=== PATIENT | female | born 1945 | race Caucasian/White ===

== ENCOUNTER 2018-04-23 11:08 | Outpatient (CLI) | payer MEDICARE, BC ==
[2018-04-23 12:00] LABS: ALBUMIN 3.9 g/dL (3.2-5.5); CALCIUM 8.8 mg/dL (8.5-10.3); CREATININE 2.9 mg/dL (0.4-1.0); PHOSPHORUS 4.4 mg/dL (2.5-4.6)
== END 2018-04-23 11:09 | disposition home or self-care (01) ==
LOC: LAB 11:08
PROVIDERS: ATTEND Internal Medicine Nephrology
DX: N18.4 Chronic kidney disease, stage 4 (severe) (principal)
CPT/HCPCS: 36415; 80069

== ENCOUNTER 2018-05-23 10:48 | Outpatient (CLI) | payer MEDICARE, BC ==
[2018-05-23 11:38] LABS: ALBUMIN 4.1 g/dL (3.2-5.5); CALCIUM 8.8 mg/dL (8.5-10.3); CREATININE 2.8 mg/dL (0.4-1.0); PHOSPHORUS 4.4 mg/dL (2.5-4.6)
== END 2018-05-23 10:49 | disposition home or self-care (01) ==
LOC: LAB 10:48
PROVIDERS: ATTEND Internal Medicine Nephrology
DX: N18.4 Chronic kidney disease, stage 4 (severe) (principal)
CPT/HCPCS: 36415; 80069

== ENCOUNTER 2018-06-22 10:36 | Outpatient (CLI) | payer MEDICARE, BC ==
[2018-06-22 11:14] LABS: ALBUMIN 4.3 g/dL (3.2-5.5); CALCIUM 8.8 mg/dL (8.5-10.3); PHOSPHORUS 4.8 mg/dL (2.5-4.6)
== END 2018-06-22 10:37 | disposition home or self-care (01) ==
LOC: LAB 10:36
PROVIDERS: ATTEND Internal Medicine Nephrology
DX: N18.4 Chronic kidney disease, stage 4 (severe) (principal)
CPT/HCPCS: 36415; 80069; 82728

== ENCOUNTER 2018-07-24 14:23 | Outpatient (CLI) | payer MEDICARE, BC ==
[2018-07-24 15:18] LABS: ALBUMIN 4.3 g/dL (3.2-5.5); CALCIUM 8.6 mg/dL (8.5-10.3); PHOSPHORUS 5.2 mg/dL (2.5-4.6)
== END 2018-07-24 14:24 | disposition home or self-care (01) ==
LOC: LAB 14:23
PROVIDERS: ATTEND Internal Medicine Nephrology
DX: N18.4 Chronic kidney disease, stage 4 (severe) (principal)
CPT/HCPCS: 36415; 80069

== ENCOUNTER 2018-08-22 11:38 | Outpatient (CLI) | payer MEDICARE, BC ==
[2018-08-22 12:16] LABS: ALBUMIN 4.1 g/dL (3.2-5.5); CALCIUM 8.4 mg/dL (8.5-10.3); CREATININE 3.1 mg/dL (0.4-1.0); PHOSPHORUS 5.1 mg/dL (2.5-4.6)
== END 2018-08-22 11:39 | disposition home or self-care (01) ==
LOC: LAB 11:38
PROVIDERS: ATTEND Internal Medicine Nephrology
DX: N18.4 Chronic kidney disease, stage 4 (severe) (principal)
CPT/HCPCS: 36415; 80069

== ENCOUNTER 2018-09-24 12:46 | Outpatient (CLI) | payer MEDICARE, BC ==
[2018-09-24 14:02] LABS: CALCIUM 8.4 mg/dL (8.5-10.3); CREATININE 3.2 mg/dL (0.4-1.0); PHOSPHORUS 4.6 mg/dL (2.5-4.6)
== END 2018-09-24 12:47 | disposition home or self-care (01) ==
LOC: LAB 12:46
PROVIDERS: ATTEND Internal Medicine Nephrology
DX: N18.4 Chronic kidney disease, stage 4 (severe) (principal)
CPT/HCPCS: 36415; 80069

== ENCOUNTER 2018-10-05 09:05 | Outpatient (CLI) | payer MEDICARE, BC ==
[2018-10-05 09:31] LABS: ALBUMIN 4.3 g/dL (3.2-5.5); CREATININE 2.9 mg/dL (0.4-1.0); PHOSPHORUS 4.7 mg/dL (2.5-4.6)
== END 2018-10-05 09:06 | disposition home or self-care (01) ==
LOC: LAB 09:05
PROVIDERS: ATTEND Internal Medicine Nephrology
DX: N18.4 Chronic kidney disease, stage 4 (severe) (principal)
CPT/HCPCS: 36415; 80069

== ENCOUNTER 2018-10-24 13:25 | Outpatient (CLI) | payer MEDICARE, BC ==
[2018-10-24 14:19] LABS: ALBUMIN 4.2 g/dL (3.2-5.5); CALCIUM 8.9 mg/dL (8.5-10.3); CREATININE 3.1 mg/dL (0.4-1.0); PHOSPHORUS 5.6 mg/dL (2.5-4.6)
== END 2018-10-24 13:26 | disposition home or self-care (01) ==
LOC: LAB 13:25
PROVIDERS: ATTEND Internal Medicine Nephrology
DX: N18.4 Chronic kidney disease, stage 4 (severe) (principal)
CPT/HCPCS: 36415; 80069

== ENCOUNTER 2019-06-25 13:53 | Outpatient (CLI) | payer MEDICARE, BC ==
[2019-06-25 17:47] LABS: HGB - HEMOGLOBIN 12.5 g/dL (12.0-16.0)
[2019-06-25 18:14] LABS: CALCIUM 8.5 mg/dL (8.5-10.3); CREATININE 3.6 mg/dL (0.4-1.0); MAGNESIUM 2.2 mg/dL (1.7-2.8); PHOSPHORUS 4.7 mg/dL (2.5-4.6)
[2019-06-25 18:16] LABS: CREATININE,URINE 146.8 mg/dL; PROTEIN/CREATININE RATIO,URINE 0.4 (<=0.2)
== END 2019-06-25 13:54 | disposition home or self-care (01) ==
LOC: LAB.S 13:53
PROVIDERS: ATTEND Internal Medicine Nephrology
DX: I12.0 Hypertensive chronic kidney disease with stage 5 chronic kidney disease or end stage renal disease (principal); N18.5 Chronic kidney disease, stage 5; D63.1 Anemia in chronic kidney disease
CPT/HCPCS: 36415; 80069; 82570; 83735; 83970; 84156; 85014; 85018

== ENCOUNTER 2019-12-19 15:08 | Outpatient (CLI) | payer MEDICARE, BC ==
[2019-12-19 15:29] LABS: CALCIUM 8.3 mg/dL (8.5-10.3); CREATININE 5.2 mg/dL (0.4-1.0)
[2019-12-19 15:32] LABS: HGB - HEMOGLOBIN 12.1 g/dL (12.0-16.0); MEAN CORPUSCULAR HEMOGLOBIN 27.6 pg (27.0-31.0); MEAN CORPUSCULAR HGB CONC 31.4 g/dL (32.0-36.0); MEAN CORPUSCULAR VOLUME 87.7 fL (81.0-99.0); MEAN PLATELET VOLUME 10.6 fL (7.9-10.8); RED BLOOD COUNT 4.39 10^6/uL (4.20-5.40); RED CELL DISTRIBUTION WIDTH 14.6 % (12.0-15.0); WHITE BLOOD COUNT 9.2 x10^3/uL (4.8-10.8)
== END 2019-12-19 15:09 | disposition home or self-care (01) ==
LOC: LAB 15:08
PROVIDERS: ATTEND Family Medicine
DX: R19.7 Diarrhea, unspecified (principal); N17.9 Acute kidney failure, unspecified; N18.4 Chronic kidney disease, stage 4 (severe)
CPT/HCPCS: 36415; 80048; 85027

== ENCOUNTER 2020-03-24 09:18 | Outpatient (CLI) | payer MEDICARE, BC ==
[2020-03-24 10:02] LABS: HGB - HEMOGLOBIN 11.9 g/dL (12.0-16.0)
[2020-03-24 10:16] LABS: ALBUMIN 4.3 g/dL (3.2-5.5); CALCIUM 8.9 mg/dL (8.5-10.3); CREATININE 3.6 mg/dL (0.4-1.0); MAGNESIUM 2.4 mg/dL (1.7-2.8); PHOSPHORUS 5.9 mg/dL (2.5-4.6)
== END 2020-03-24 09:19 | disposition home or self-care (01) ==
LOC: LAB 09:18
PROVIDERS: ATTEND Internal Medicine Nephrology
DX: I12.0 Hypertensive chronic kidney disease with stage 5 chronic kidney disease or end stage renal disease (principal); N18.5 Chronic kidney disease, stage 5; D63.1 Anemia in chronic kidney disease
CPT/HCPCS: 36415; 80069; 81599; 82570; 83735; 84156; 85014; 85018

== ENCOUNTER 2020-03-28 13:04 | Emergency (ER) | payer MEDICARE, BC ==
[2020-03-28] MEDS ORDERED: TETANUS/DIPHTHERIA/PERTUSSIS 0.5 ML SYRINGE IM ONE (13:11)
[2020-03-28] MEDS ORDERED: BUFFERED LIDOCAINE 10 ML SYRINGE SUBQ STA (13:15)
[2020-03-28] MEDS ORDERED: LIDOCAINE-EPINEPH-TETRACAINE 3 ML SYRINGE TOP STA (13:15)
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
[2020-03-28 14:09] VITALS: BP 140/78
== END 2020-03-28 14:08 | disposition home or self-care (01) ==
LOC: ED 13:04
DX: S91.311A Laceration without foreign body, right foot, initial encounter (principal); W26.8XXA Contact with other sharp object(s), not elsewhere classified, initial encounter; Z23 Encounter for immunization; N28.9 Disorder of kidney and ureter, unspecified
CPT/HCPCS: 12002; 90471; 99281; 99283

== ENCOUNTER 2020-04-27 11:13 | Outpatient (CLI) | payer MEDICARE, BC ==
[2020-04-27 11:31] LABS: HGB - HEMOGLOBIN 11.6 g/dL (12.0-16.0)
[2020-04-27 11:41] LABS: CREATININE,URINE 137.8 mg/dL
[2020-04-27 11:46] LABS: ALBUMIN 4.2 g/dL (3.2-5.5); CALCIUM 9.5 mg/dL (8.5-10.3); CREATININE 3.8 mg/dL (0.4-1.0); MAGNESIUM 2.3 mg/dL (1.7-2.8); PHOSPHORUS 4.8 mg/dL (2.5-4.6)
== END 2020-04-27 11:14 | disposition home or self-care (01) ==
LOC: LAB 11:13
PROVIDERS: ATTEND Internal Medicine Nephrology
DX: I12.0 Hypertensive chronic kidney disease with stage 5 chronic kidney disease or end stage renal disease (principal); D63.1 Anemia in chronic kidney disease; N18.5 Chronic kidney disease, stage 5
CPT/HCPCS: 36415; 80069; 82570; 83735; 83970; 84156; 85014; 85018

== ENCOUNTER 2020-05-22 10:54 | Outpatient (CLI) | payer MEDICARE, BC ==
[2020-05-22 11:25] LABS: HGB - HEMOGLOBIN 13.3 g/dL (12.0-16.0)
[2020-05-22 11:39] LABS: ALBUMIN 4.3 g/dL (3.2-5.5); CALCIUM 9.6 mg/dL (8.5-10.3); CREATININE 3.8 mg/dL (0.4-1.0); MAGNESIUM 2.6 mg/dL (1.7-2.8); PHOSPHORUS 5.2 mg/dL (2.5-4.6)
[2020-05-22 12:50] LABS: CREATININE,URINE 160.6 mg/dL; PROTEIN/CREATININE RATIO,URINE 2.7 (<=0.2)
== END 2020-05-22 10:55 | disposition home or self-care (01) ==
LOC: LAB 10:54
PROVIDERS: ATTEND Internal Medicine Nephrology
DX: I12.0 Hypertensive chronic kidney disease with stage 5 chronic kidney disease or end stage renal disease (principal); N18.5 Chronic kidney disease, stage 5; D63.1 Anemia in chronic kidney disease; M1A.9XX0 Chronic gout, unspecified, without tophus (tophi); Z79.899 Other long term (current) drug therapy
CPT/HCPCS: 36415; 80069; 82570; 83735; 83970; 84156; 84550; 85014; 85018

== ENCOUNTER 2020-07-02 13:15 | Outpatient (CLI) | payer MEDICARE, BC | END 2020-07-02 13:16 | disposition home or self-care (01) | LOC: LAB 13:15 | PROVIDERS: ATTEND Internal Medicine Nephrology | DX: Z53.9 Procedure and treatment not carried out, unspecified reason (principal) | CPT/HCPCS: 36415; 80069; 83735; 85014; 85018 ==

== ENCOUNTER 2020-07-06 13:05 | Outpatient (CLI) | payer MEDICARE, BC ==
[2020-07-06 15:38] LABS: HGB - HEMOGLOBIN 12.9 g/dL (12.0-16.0)
[2020-07-06 15:54] LABS: ALBUMIN 3.8 g/dL (3.2-5.5); CALCIUM 9.2 mg/dL (8.5-10.3); CREATININE 3.6 mg/dL (0.4-1.0); MAGNESIUM 2.2 mg/dL (1.7-2.8); PHOSPHORUS 4.2 mg/dL (2.5-4.6)
== END 2020-07-06 13:06 | disposition home or self-care (01) ==
LOC: LAB.S 13:05
PROVIDERS: ATTEND Nurse Practitioner
DX: N18.6 End stage renal disease (principal)
CPT/HCPCS: 36415; 80069; 83735; 85014; 85018

== ENCOUNTER 2020-07-10 15:15 | Outpatient (CLI) | payer MEDICARE, BC ==
[2020-07-10 19:54] LABS: ALBUMIN 3.9 g/dL (3.2-5.5); CALCIUM 9.1 mg/dL (8.5-10.3); PHOSPHORUS 5.1 mg/dL (2.5-4.6)
== END 2020-07-10 15:16 | disposition home or self-care (01) ==
LOC: LAB.S 15:15
PROVIDERS: ATTEND Internal Medicine Cardiovascular Disease
DX: R06.00 Dyspnea, unspecified (principal); N18.5 Chronic kidney disease, stage 5
CPT/HCPCS: 36415; 80069

== ENCOUNTER 2020-07-27 16:06 | Outpatient (CLI) | payer MEDICARE, BC ==
[2020-07-27 20:00] LABS: HGB - HEMOGLOBIN 13.5 g/dL (12.0-16.0)
[2020-07-27 20:10] LABS: ALBUMIN 4.2 g/dL (3.2-5.5); CALCIUM 9.8 mg/dL (8.5-10.3); CREATININE 4.1 mg/dL (0.4-1.0); MAGNESIUM 2.5 mg/dL (1.7-2.8); PHOSPHORUS 5.2 mg/dL (2.5-4.6)
== END 2020-07-27 16:07 | disposition home or self-care (01) ==
LOC: LAB.S 16:06
PROVIDERS: ATTEND Internal Medicine Nephrology
DX: I12.9 Hypertensive chronic kidney disease with stage 1 through stage 4 chronic kidney disease, or unspecified chronic kidney disease (principal); N18.4 Chronic kidney disease, stage 4 (severe); Z76.82 Awaiting organ transplant status; N25.81 Secondary hyperparathyroidism of renal origin
CPT/HCPCS: 36415; 80069; 83735; 83970; 85014; 85018

== ENCOUNTER 2020-08-10 12:13 | Outpatient (CLI) | payer MEDICARE, BC ==
[2020-08-10 16:56] LABS: HGB - HEMOGLOBIN 13.7 g/dL (12.0-16.0)
[2020-08-10 16:58] LABS: ALBUMIN 4.2 g/dL (3.2-5.5); CREATININE 3.9 mg/dL (0.4-1.0)
== END 2020-08-10 12:14 | disposition home or self-care (01) ==
LOC: LAB.S 12:13
PROVIDERS: ATTEND Internal Medicine Nephrology
DX: N18.4 Chronic kidney disease, stage 4 (severe) (principal); D63.1 Anemia in chronic kidney disease
CPT/HCPCS: 36415; 80069; 85014; 85018

== ENCOUNTER 2020-09-03 09:13 | Outpatient (CLI) | payer MEDICARE, BC | END 2020-09-03 09:14 | disposition home or self-care (01) | LOC: LAB.S 09:13 | PROVIDERS: ATTEND Pharmacist | DX: I48.92 Unspecified atrial flutter (principal) | CPT/HCPCS: 85610 ==

== ENCOUNTER 2020-09-07 14:28 | Outpatient (CLI) | payer MEDICARE, BC | END 2020-09-07 14:29 | disposition home or self-care (01) | LOC: LAB.S 14:28 | PROVIDERS: ATTEND Pharmacist | DX: I48.92 Unspecified atrial flutter (principal) | CPT/HCPCS: 85610 ==

== ENCOUNTER 2020-09-14 10:04 | Outpatient (CLI) | payer MEDICARE, BC | END 2020-09-14 10:05 | disposition home or self-care (01) | LOC: LAB.S 10:04 | PROVIDERS: ATTEND Pharmacist | DX: Z00.00 Encounter for general adult medical examination without abnormal findings (principal); I48.92 Unspecified atrial flutter | CPT/HCPCS: 85610 ==

== ENCOUNTER 2020-09-21 08:49 | Outpatient (CLI) | payer MEDICARE, BC ==
[2020-09-21 16:11] LABS: CREATININE,URINE 62.1 mg/dL; PROTEIN/CREATININE RATIO,URINE 1.5 (<=0.2)
[2020-09-21 16:33] LABS: ALBUMIN 4.1 g/dL (3.2-5.5); CARBON DIOXIDE - CO2 23 mmol/L (21-32); CHLORIDE 97 mmol/L (101-111); CHOL/HDL RATIO 3.2 (<4.4); CHOLESTEROL 187 mg/dL; CREATININE 4.8 mg/dL (0.4-1.0); GLUCOSE 113 mg/dL (70-100); HDL CHOLESTEROL 58 mg/dL; LDL CHOLESTEROL,CALCULATED 110 mg/dL; LDL/HDL RATIO 1.9 (<4.4); MAGNESIUM 2.8 mg/dL (1.7-2.8); PHOSPHORUS 8.6 mg/dL (2.5-4.6); SODIUM 135 mmol/L (135-145); VLDL CHOLESTEROL 19 mg/dL
[2020-09-21 16:48] LABS: BUN - BLOOD UREA NITROGEN 112 mg/dL (6-20)
[2020-09-21 19:57] LABS: HEMOGLOBIN A1c% 6.4 % (4.27-6.07)
== END 2020-09-21 08:50 | disposition home or self-care (01) ==
LOC: LAB.S 08:49
PROVIDERS: ATTEND Internal Medicine Nephrology
DX: Z00.00 Encounter for general adult medical examination without abnormal findings (principal); N18.6 End stage renal disease; D63.1 Anemia in chronic kidney disease; I10 Essential (primary) hypertension; N25.81 Secondary hyperparathyroidism of renal origin; I48.92 Unspecified atrial flutter
CPT/HCPCS: 36415; 80061; 80069; 82570; 83036; 83721; 83735; 83970; 84156; 85610

== ENCOUNTER 2020-09-22 18:01 | Outpatient (CLI) | payer MEDICARE, BC ==
[2020-09-22 20:16] LABS: HGB - HEMOGLOBIN 12.8 g/dL (12.0-16.0); MEAN CORPUSCULAR HEMOGLOBIN 26.4 pg (27.0-31.0); MEAN CORPUSCULAR HGB CONC 31.3 g/dL (32.0-36.0); MEAN CORPUSCULAR VOLUME 84.5 fL (81.0-99.0); MEAN PLATELET VOLUME 10.6 fL (7.9-10.8); RED BLOOD COUNT 4.84 10^6/uL (4.20-5.40); RED CELL DISTRIBUTION WIDTH 15.9 % (12.0-15.0); WHITE BLOOD COUNT 8.9 x10^3/uL (4.8-10.8)
[2020-09-22 20:32] LABS: CALCIUM 9.4 mg/dL (8.5-10.3)
[2020-09-22 20:33] LABS: CREATININE 5.1 mg/dL (0.4-1.0); MAGNESIUM 2.6 mg/dL (1.7-2.8); PHOSPHORUS 8.7 mg/dL (2.5-4.6)
--- OUTSIDE RECORDS SUMMARY | 2020-09-23 04:54 | EXTERNAL MEDICAL SUMMARY RPT | Continuity of Care Document ---
:1945 Demographics Phone Unavailable Preferred Language Unknown Marital Status Unknown Worship Affiliation Unknown Race Unknown Ethnic Group Unknown Author Organization [facility] Address [address] [phone] Phone Care Team Providers Name Role Phone Matias Unavailable Unavailable Reddy Unavailable Unavailable MATIAS Unavailable Unavailable Appiah Unavailable Unavailable Problems date description facility 2020-07-02 13:00 ESSENTIAL (PRIMARY) HYPERTENSION [facility] 2020-07-02 13:00 CHRONIC KIDNEY DISEASE, STAGE 5 [facility] 2020-07-02 13:00 SECONDARY HYPERPARATHYROIDISM OF [facility]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 2020-07-06 13:05 ESSENTIAL (PRIMARY) HYPERTENSION [facility] 2020-07-06 13:05 END STAGE RENAL DISEASE 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 2020-09-14 10:04 ENCNTR FOR GENERAL ADULT MEDICAL [facility] EXAM W/O ABNORMAL FINDINGS 2020-09-21 08:49 ANEMIA IN CHRONIC KIDNEY DISEASE [facility] 2020-09-21 08:49 ESSENTIAL (PRIMARY) HYPERTENSION [facility] 2020-09-21 08:49 UNSPECIFIED ATRIAL FLUTTER [facility] 2020-09-21 08:49 CHRONIC KIDNEY DISEASE, STAGE 4 [facility] ([facility]) 2020-09-21 08:49 END STAGE RENAL DISEASE [facility] 2020-09-21 08:49 SECONDARY HYPERPARATHYROIDISM OF [facility] RENAL ORIGIN 2020-09-21 08:49 ENCNTR FOR GENERAL ADULT MEDICAL [facility] EXAM W/O ABNORMAL FINDINGS 2020-09-22 18:01 ESSENTIAL (PRIMARY) HYPERTENSION [facility] 2020-09-22 18:01 CHRONIC KIDNEY DISEASE, STAGE 4 [facility] ([facility]) 2020-09-22 18:01 CHRONIC KIDNEY DISEASE, STAGE 5 [facility] 2020-09-22 18:01 SECONDARY HYPERPARATHYROIDISM OF [facility] RENAL ORIGIN 2020-09-22 18:01 AWAITING ORGAN TRANSPLANT STATUS [facility] Allergies date description facility AZITHROMYCIN [facility] BEE VENOM [facility] DOXYCYCLINE [facility] HYDROCODONE [facility] MORPHINE [facility] PENICILLINS [facility] UNCODED NONSCREENABLE ALLERGEN [facility] NO ALLERGY INFORMATION AVAILABLE [facility] PENICILLINS [facility] NO KNOWN ALLERGIES [facility] Penicillins [facility] TRAZ[facility] QUETIAPINE [facility] [place] HYDROCODONE-ACETAMINOPHEN [facility] MORPHINE [facility] [place] NAPHAZOLINE-POLYETHYL GLYCOL [facility] NO KNOWN ALLERGIES [facility] PENICILLINS [facility] Results Social History date description facility [id number]
[2020-09-25 13:22] LABS: HEPATITIS B SURFACE ANTIGEN NON-REACTIVE (NON-REACTIVE); HEPATITIS C ANTIBODY NON-REACTIVE (NON-REACTIVE)
== END 2020-09-22 18:02 | disposition home or self-care (01) ==
LOC: LAB.S 18:01
PROVIDERS: ATTEND Internal Medicine Nephrology
DX: I12.0 Hypertensive chronic kidney disease with stage 5 chronic kidney disease or end stage renal disease (principal); N18.5 Chronic kidney disease, stage 5; N25.81 Secondary hyperparathyroidism of renal origin; Z76.82 Awaiting organ transplant status
CPT/HCPCS: 36415; 80069; 81599; 83735; 85027; 86317; 86704; 86803; 87340; 87535

== ENCOUNTER 2020-10-10 09:48 | Outpatient (CLI) | payer MEDICARE, BC | END 2020-10-10 09:49 | disposition critical access hospital (66) | LOC: EMS 09:48 | PROVIDERS: ATTEND Surgery | DX: I95.9 Hypotension, unspecified (principal); R53.83 Other fatigue | CPT/HCPCS: A0425; A0429 ==

== ENCOUNTER 2020-10-10 10:10 | Emergency (ER) | payer MEDICARE, BC ==
[2020-10-10] MEDS ORDERED: LACTATED RINGERS 250 ML IV STA (10:30)
--- NOTE | 2020-10-10 11:08 | XRAY Report ---
PROCEDURE: Chest 1 View X-Ray INDICATIONS: Chest Pain TECHNIQUE: One view of the chest was acquired. COMPARISON: None. FINDINGS: Surgical changes and devices: There is a right-sided dialysis catheter, with the tip overlying the mi d to inferior superior vena cava. An apparent leadless pacer can be seen Lungs and pleura: No pleural effusions or pneumothorax. Lungs are clear. Mediastinum: Mediastinal contours appear normal. Heart size is normal. Bones and chest wall: No suspicious bony lesions. Overlying soft tissues appear unremarkable. IMPRESSION: No acute portable chest abnormality can be seen. Incidental note is made of: Right-sided dialysis catheter Apparent leadless pacer Reviewed by: Pk Panda MD on 10/10/2020 10:06 AM [facility] Approved by: Pk Panda MD on 10/10/2020 10:06 AM [facility] Station ID: [id number]
[2020-10-10 11:28] LABS: BASOPHILS # (AUTO) 0.1 10^3/uL (0.0-0.1); BASOPHILS % (AUTO) 1.1 %; EOSINOPHILS # (AUTO) 0.1 10^3/uL (0.0-0.7); EOSINOPHILS % (AUTO) 1.3 %; HGB - HEMOGLOBIN 12.1 g/dL (12.0-16.0); LYMPHOCYTES # (AUTO) 0.9 10^3/uL (1.5-3.5); LYMPHOCYTES % (AUTO) 8.6 %; MEAN CORPUSCULAR HEMOGLOBIN 27.4 pg (27.0-31.0); MEAN CORPUSCULAR HGB CONC 29.5 g/dL (32.0-36.0); MEAN PLATELET VOLUME 10.3 fL (7.9-10.8); MONOCYTES # (AUTO) 0.6 10^3/uL (0.0-1.0); MONOCYTES % (AUTO) 5.6 %; NEUTROPHILS # (AUTO) 8.8 10^3/uL (1.5-6.6); NEUTROPHILS % (AUTO) 82.5 %; PLT - PLATELET COUNT 226 10^3/uL (130-450); RED BLOOD COUNT 4.41 10^6/uL (4.20-5.40); RED CELL DISTRIBUTION WIDTH 17.9 % (12.0-15.0); WHITE BLOOD COUNT 10.7 x10^3/uL (4.8-10.8)
[2020-10-10 12:03] LABS: ALBUMIN 3.6 g/dL (3.2-5.5); ALBUMIN/GLOBULIN RATIO 1.2 (1.0-2.2); BILIRUBIN,TOTAL 0.9 mg/dL (0.2-1.0); CALCIUM 9.1 mg/dL (8.5-10.3); CREATININE 2.5 mg/dL (0.4-1.0); TOTAL PROTEIN 6.7 g/dL (6.7-8.2)
--- NOTE | 2020-10-10 12:22 | ED Physician Documentation ---
History of Present Illness - Stated complaint Stated Complaint: HYPOTENSIVE - Chief complaint Chief Complaint: General - History obtained from History obtained from: Patient - Additonal information Additional information: 75-year-old woman with past medical history of A. fib, bradycardia status post pacemaker (new pacer placed last week), end-stage renal disease on hemodialysis status post 1 hour of dialysis today presents with weakness, vision changes and hypotension after 1 hour of dialysis today. She normally does a full 3 hours but it was stopped early and she was brought into the emergency department. She states that she was feeling normal earlier in the day and felt normal yesterday. Denies chest pain shortness of breath nausea diaphoresis. Review of Systems Ten Systems: 10 systems reviewed and negative Eyes: reports: Decreased vision Neurologic: reports: Generalized weakness PD PAST MEDICAL HISTORY - Past Medical History Past Medical History: Yes Cardiovascular: Atrial fibrillation, Other - Past Surgical History General: Cholecystectomy, Appendectomy Cardiovascular: Pacemaker - Present Medications Home Medications: Ambulatory Orders Medication Instructions Recorded Confirmed Calcium Carbonate [Tums (Calcium 750 mg PO TID PRN 10/10/20 10/10/20 Carbonate 500mg)] Cholecalciferol [Vitamin D3] 25 mcg PO DAILY 10/10/20 10/10/20 Famotidine [Pepcid AC] 10 mg PO DAILY PRN 10/10/20 10/10/20 Ferrous Sulfate 325 mg PO DAILY 10/10/20 10/10/20 Gabapentin [Neurontin] 100 mg PO HS 10/10/20 10/10/20 Loratadine [Claritin] 10 mg PO DAILY 10/10/20 10/10/20 Mometasone Furoate [Nasonex] 2 spray IN DAILY 10/10/20 10/10/20 Multivit-Mins No.11/Folic Acid 5 mg PO DAILY 10/10/20 10/10/20 [Dialyvite 5000 Tablet] Warfarin [Coumadin] 2.5 mg PO DAILY 10/10/20 10/10/20 Warfarin [Coumadin] 2.5 mg PO DAILY 10/10/20 10/10/20 allopurinoL [Zyloprim] 150 mg PO DAILY 10/10/20 10/10/20 traMADol [Ultram] 50 mg PO BID 10/10/20 10/10/20 - Allergies Allergies/Adverse Reactions: Allergies Allergy/AdvReac Type Severity Reaction Status Date / Time codeine Allergy Hives Verified 10/10/20 10:17 Penicillins Allergy Hives Verified 10/10/20 10:17 - Social History Does the pt smoke?: No Smoking Status: Never smoker Does the pt drink ETOH?: No Does the pt have substance abuse?: No - Immunizations Immunizations are current?: Yes - POLST Patient has POLST: No PD ED PE NORMAL - Vitals Vital signs reviewed: Yes - General General: Alert and oriented X 3, No acute distress - HEENT HEENT: Atraumatic, PERRL, EOMI - Neck Neck: Supple, no meningeal sign - Cardiac Cardiac: RRR, Other (R subclavian udall in place) - Respiratory Respiratory: No respiratory distress, Clear bilaterally - Abdomen Abdomen: Non tender, Non distended - Female Female : Deferred - Rectal Rectal: Deferred - Back Back: No spinal TTP - Derm Derm: Normal color - Extremities Extremities: No deformity, Other (palpable thrill R arm fistula) - Neuro Neuro: Alert and oriented X 3, ultrasound manager 2-12 intact, No motor deficit, No sensory deficit Results - Vitals Vitals: Vital Signs - 24 hr 10/10/20 10/10/20 10/10/20 10:17 10:21 11:16 Temperature 36.3 C L Heart Rate 92 91 89 Respiratory 18 12 13 Rate Blood Pressure 107/54 L 114/51 L 117/56 L O2 Saturation 98 100 100 10/10/20 10/10/20 11:53 12:27 Temperature 36.3 C L Heart Rate 89 90 Respiratory 12 19 Rate Blood Pressure 119/59 L 126/61 O2 Saturation 100 100 Oxygen O2 Source Room air - Labs Labs: Laboratory Tests 10/10/20 10/10/20 11:25 11:25 WBC 10.7 RBC 4.41 Hgb 12.1 Hct 41.0 MCV 93.0 MCH 27.4 MCHC 29.5 L RDW 17.9 H Plt Count 226 MPV 10.3 Neut # (Auto) 8.8 H Lymph # (Auto) 0.9 L Bibb # (Auto) 0.6 Eos # (Auto) 0.1 Baso # (Auto) 0.1 Absolute Nucleated RBC 0.00 Nucleated RBC % 0.0 Sodium 139 Potassium 4.9 Chloride 100 L Carbon Dioxide 24 Anion Gap 15.0 H BUN 23 H Creatinine 2.5 H Estimated GFR (MDRD) 19 L Glucose 111 H Calcium 9.1 Total Bilirubin 0.9 AST 31 ALT 11 Alkaline Phosphatase 65 Total Protein 6.7 Albumin 3.6 Globulin 3.1 Albumin/Globulin Ratio 1.2 Lipase 36 PD MEDICAL DECISION MAKING - ED course ED course: 75-year-old woman presented with hypotension, weakness and double vision during dialysis, found to have blood pressure 100/49 at dialysis. She received about 350 cc of IV fluids and her symptoms have resolved in the emergency room. Her neurologic exam is normal at this time. Lab work, chest x-ray, EKG nonfocal. Return precautions given. Patient will follow up for dialysis in a couple days. Departure - Departure Disposition: Home, Self Care Clinical Impression: Hypotension Condition: Good Instructions: Hypotension Dc Comments: You were seen in the emergency department for low blood pressure during dialysis. Your blood pressure improved after getting about 350 mL of IV fluids. Your labwork, ekg, and chest xray did not have concerning findings. You can follow-up in 3 days for your next dialysis appointment. If you experience any chest pain, dizziness, shortness of breath, fevers or other symptoms then please return to the emergency department immediately. Return for any new or wors ening symptoms or other concerns.
[2020-10-10 12:29] VITALS: BP 126/61
== END 2020-10-10 12:47 | disposition home or self-care (01) ==
LOC: EDUNIT# → ED 10:10
DX: I95.3 Hypotension of hemodialysis (principal); I48.91 Unspecified atrial fibrillation; N18.6 End stage renal disease; Z99.2 Dependence on renal dialysis; Z79.01 Long term (current) use of anticoagulants
CPT/HCPCS: 71045; 80053; 83690; 85025; 93005; 96360; 99283; 99284; J7120; 36415

== ENCOUNTER 2020-10-16 09:02 | Outpatient (CLI) | payer MEDICARE, BC ==
[2020-10-16 16:15] LABS: ALBUMIN 3.1 g/dL (3.2-5.5); CALCIUM 8.8 mg/dL (8.5-10.3); CREATININE 3.5 mg/dL (0.4-1.0); PHOSPHORUS 5.1 mg/dL (2.5-4.6)
== END 2020-10-16 09:03 | disposition home or self-care (01) ==
LOC: LAB.S 09:02
PROVIDERS: ATTEND Pharmacist
DX: I48.92 Unspecified atrial flutter (principal); N25.81 Secondary hyperparathyroidism of renal origin; I12.9 Hypertensive chronic kidney disease with stage 1 through stage 4 chronic kidney disease, or unspecified chronic kidney disease; N18.4 Chronic kidney disease, stage 4 (severe); Z76.82 Awaiting organ transplant status
CPT/HCPCS: 36415; 80069; 85610

== ENCOUNTER 2020-11-05 11:58 | Outpatient (CLI) | payer MEDICARE, BC ==
[2020-11-05 14:48] LABS: HGB - HEMOGLOBIN 10.9 g/dL (12.0-16.0)
[2020-11-05 15:14] LABS: ALBUMIN 3.8 g/dL (3.2-5.5); CALCIUM 8.8 mg/dL (8.5-10.3); CREATININE 3.6 mg/dL (0.4-1.0); PHOSPHORUS 3.7 mg/dL (2.5-4.6)
== END 2020-11-05 11:59 | disposition home or self-care (01) ==
LOC: LAB.S 11:58
PROVIDERS: ATTEND Internal Medicine Nephrology
DX: I12.9 Hypertensive chronic kidney disease with stage 1 through stage 4 chronic kidney disease, or unspecified chronic kidney disease (principal); N18.4 Chronic kidney disease, stage 4 (severe); Z76.82 Awaiting organ transplant status; N25.81 Secondary hyperparathyroidism of renal origin; I48.92 Unspecified atrial flutter
CPT/HCPCS: 36415; 80069; 83735; 85014; 85018; 85610

== ENCOUNTER 2020-11-12 10:35 | Outpatient (CLI) | payer MEDICARE, BC | END 2020-11-12 10:36 | disposition home or self-care (01) | LOC: LAB.S 10:35 | PROVIDERS: ATTEND Pharmacist | DX: I48.92 Unspecified atrial flutter (principal) | CPT/HCPCS: 85610 ==

== ENCOUNTER 2020-11-26 11:38 | Outpatient (CLI) | payer MEDICARE, BC | END 2020-11-26 11:39 | disposition home or self-care (01) | LOC: LAB.S 11:38 | PROVIDERS: ATTEND Pharmacist | DX: I48.92 Unspecified atrial flutter (principal) | CPT/HCPCS: 85610 ==

== ENCOUNTER 2020-12-03 11:02 | Outpatient (CLI) | payer MEDICARE, BC | END 2020-12-03 11:03 | disposition home or self-care (01) | LOC: LAB.S 11:02 | PROVIDERS: ATTEND Pharmacist | DX: I48.92 Unspecified atrial flutter (principal) | CPT/HCPCS: 85610 ==

== ENCOUNTER 2020-12-15 13:05 | Outpatient (CLI) | payer MEDICARE, BC | END 2020-12-15 13:06 | disposition home or self-care (01) | LOC: LAB.S 13:05 | PROVIDERS: ATTEND Pharmacist | DX: I48.92 Unspecified atrial flutter (principal) | CPT/HCPCS: 85610 ==

== ENCOUNTER 2020-12-29 17:44 | Emergency (ER) | payer MEDICARE, BC ==
--- OUTSIDE RECORDS SUMMARY | 2020-12-29 17:46 | EXTERNAL MEDICAL SUMMARY RPT | Continuity of Care Document ---
:1945 Demographics Phone Unavailable Preferred Language Unknown Marital Status Unknown Anglican Affiliation Unknown Race Unknown Ethnic Group Unknown Author Organization [facility] Address [address] [phone] Phone Care Team Providers Name Role Phone PA-C Unavailable Unavailable Hiram Unavailable Unavailable Problems date description facility 20201114 Alcohol intake [facility] 20201114 Details of drug misuse behavior [facility] 20201114 Diarrhea [facility] 20201114 Diarrhea, unspecified [facility] 20201114 Loose stool [facility] 20201114 Never smoker [facility] 20201114 Tobacco smoking status NHIS [facility] 20201114 Alcohol use [facility] 20201114 Exercise [facility] Medications date description facility 20201114 WARFARIN SODIUM TABS [facility] 20201114 FERROUS GLUCONATE TABS [facility] [id number] WARFARIN SODIUM TABS [facility] [id number] WARFARIN SODIUM TABS [facility] [id number] FERROUS GLUCONATE TABS [facility] 20201114 WARFARIN SODIUM TABS [facility] Vital Signs date measurement value source 20201114 BMI 31.32 kg/m2 20201114 BP_diastolic 76 mm[Hg] 20201114 BP_systolic 151 mm[Hg] 20201114 heart_rate 82 /min 20201114 height_metric 161.29 cm 20201114 height_standard 63.5 in 20201114 respiration_rate 16 /min 20201114 temperature_metric 36.11 C 20201114 temperature_standard 97 F 20201114 weight_metric 81.19 kg 20201114 weight_standard 179 lb 20201114 BMI 31.32 kg/m2 20201114 BP_diastolic 76 mm[Hg] 20201114 BP_systolic 151 mm[Hg] 20201114 heart_rate 82 /min 20201114 height_metric 161.29 cm 20201114 height_standard 63.5 in 20201114 respiration_rate 16 /min 20201114 temperature_metric 36.11 C 20201114 temperature_standard 97 F 20201114 weight_metric 81.19 kg 20201114 weight_standard 179 lb Social History date description facility [id number]
--- OUTSIDE RECORDS SUMMARY | 2020-12-29 18:05 | EXTERNAL MEDICAL SUMMARY RPT | Continuity of Care Document ---
:1945 Demographics Phone Unavailable Preferred Language Unknown Marital Status Unknown Muslim Affiliation Unknown Race Unknown Ethnic Group Unknown Author Organization [place] Address [address] [phone] Phone Care Team Providers Name Role Phone Hiram Unavailable Unavailable PA-C Unavailable Unavailable Problems date description facility 20201114 [...] 179 lb Social History date description facility [id number]
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
[2020-12-29 18:27] LABS: BASOPHILS # (AUTO) 0.1 10^3/uL (0.0-0.1); BASOPHILS % (AUTO) 1.5 %; EOSINOPHILS # (AUTO) 0.1 10^3/uL (0.0-0.7); EOSINOPHILS % (AUTO) 1.8 %; HCT - HEMATOCRIT 34.7 % (37.0-47.0); HGB - HEMOGLOBIN 11.1 g/dL (12.0-16.0); LYMPHOCYTES # (AUTO) 1.7 10^3/uL (1.5-3.5); LYMPHOCYTES % (AUTO) 21.8 %; MEAN CORPUSCULAR HEMOGLOBIN 29.7 pg (27.0-31.0); MEAN CORPUSCULAR VOLUME 92.8 fL (81.0-99.0); MEAN PLATELET VOLUME 9.7 fL (7.9-10.8); MONOCYTES # (AUTO) 0.7 10^3/uL (0.0-1.0); MONOCYTES % (AUTO) 8.9 %; NEUTROPHILS # (AUTO) 5.2 10^3/uL (1.5-6.6); NEUTROPHILS % (AUTO) 65.7 %; PLT - PLATELET COUNT 212 10^3/uL (130-450); RED BLOOD COUNT 3.74 10^6/uL (4.20-5.40); RED CELL DISTRIBUTION WIDTH 15.5 % (12.0-15.0); WHITE BLOOD COUNT 7.9 x10^3/uL (4.8-10.8)
--- NOTE | 2020-12-29 18:34 | XRAY Report ---
PROCEDURE: Chest 1 View X-Ray INDICATIONS: Chest Pain TECHNIQUE: One view of the chest was acquired. COMPARISON: Chest x-ray 10/10/2020 FINDINGS: Surgical changes and devices: Right-sided dialysis catheter is present. Lungs and pleura: There is a minimal appearance of bibasilar coarsening. Overall appearance of mild i ncreased vascularity is noted. Mediastinum: Mediastinal contours appear normal. Heart size is enlarged. Bones and chest wall: No suspicious bony lesions. Overlying soft tissues appear unremarkable. IMPRESSION: 1. Mild appearance of bibasilar coarsening with increased pulmonary vascularity. The latter is sugges tive of edema, the former can be secondary to developing pneumonia, atelectasis or focal edema. Reviewed by: Morenita Berry MD on 12/29/2020 6:32 PM PDT Approved by: Morenita Berry MD on 12/29/2020 6:32 PM PDT Station ID: [id number]
[2020-12-29 18:41] LABS: ALBUMIN 3.6 g/dL (3.2-5.5); ALBUMIN/GLOBULIN RATIO 1.2 (1.0-2.2); BILIRUBIN,TOTAL 0.9 mg/dL (0.2-1.0); CALCIUM 9.9 mg/dL (8.5-10.3); CREATININE 5.7 mg/dL (0.4-1.0); POTASSIUM 4.7 mmol/L (3.5-5.0); TOTAL PROTEIN 6.7 g/dL (6.7-8.2)
[2020-12-29] MEDS ORDERED: METOPROLOL 5 MG/5 ML VIAL IVP STA ×2 (18:52→20:25)
[2020-12-29] MEDS ORDERED: METOPROLOL TARTRATE 50 MG TABLET PO STA (18:53)
[2020-12-29 19:06] LABS: INR 2.5 (0.8-1.2); PT - PROTHROMBIN TIME 26.1 secs (9.9-12.6)
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
[2020-12-29 20:33] VITALS: BP 115/88
== END 2020-12-29 20:38 | disposition home or self-care (01) ==
LOC: ED 17:44
DX: Z04.1 Encounter for examination and observation following transport accident (principal); I48.91 Unspecified atrial fibrillation; R79.1 Abnormal coagulation profile; Z79.01 Long term (current) use of anticoagulants
CPT/HCPCS: 36415; 70450; 71045; 80053; 83690; 84484; 85025; 85610; 93005; 96374; 99283; 99284; A9270

== ENCOUNTER 2021-01-12 14:30 | Outpatient (CLI) | payer MEDICARE, BC | END 2021-01-12 14:31 | disposition home or self-care (01) | LOC: LAB.S 14:30 | PROVIDERS: ATTEND Pharmacist | DX: I48.92 Unspecified atrial flutter (principal) | CPT/HCPCS: 36416; 85610 ==

== ENCOUNTER 2021-01-16 10:36 | Outpatient (CLI) | payer MEDICARE, BC | END 2021-01-16 10:37 | disposition home or self-care (01) | LOC: LAB.S 10:36 | PROVIDERS: ATTEND Pharmacist | DX: I48.92 Unspecified atrial flutter (principal) | CPT/HCPCS: 36416; 85610 ==

== ENCOUNTER 2021-01-28 13:21 | Outpatient (CLI) | payer MEDICARE, BC | END 2021-01-28 13:22 | disposition home or self-care (01) | LOC: LAB.S 13:21 | PROVIDERS: ATTEND Pharmacist | DX: I48.92 Unspecified atrial flutter (principal) | CPT/HCPCS: 36416; 85610 ==

== ENCOUNTER 2021-02-11 11:34 | Outpatient (CLI) | payer MEDICARE, BC ==
[2021-02-11 13:12] LABS: PT - PROTHROMBIN TIME 95.7 secs (9.9-12.6)
[2021-02-11 13:14] LABS: INR 9.9 (0.8-1.2)
== END 2021-02-11 11:35 | disposition home or self-care (01) ==
LOC: LAB.S 11:34
PROVIDERS: ATTEND Pharmacist
DX: I48.92 Unspecified atrial flutter (principal)
CPT/HCPCS: 36415; 36416; 85610

== ENCOUNTER 2021-02-12 15:55 | Outpatient (CLI) | payer MEDICARE, BC | END 2021-02-12 15:56 | disposition home or self-care (01) | LOC: LAB.S 15:55 | PROVIDERS: ATTEND Pharmacist | DX: I48.92 Unspecified atrial flutter (principal) | CPT/HCPCS: 36416; 85610 ==

== ENCOUNTER 2021-02-15 16:40 | Outpatient (CLI) | payer MEDICARE, BC | END 2021-02-15 16:41 | disposition home or self-care (01) | LOC: LAB.S 16:40 | PROVIDERS: ATTEND Pharmacist | DX: I48.92 Unspecified atrial flutter (principal) | CPT/HCPCS: 36416; 85610 ==

== ENCOUNTER 2021-02-20 11:57 | Outpatient (CLI) | payer MEDICARE, BC | END 2021-02-20 11:58 | disposition home or self-care (01) | LOC: LAB.S 11:57 | PROVIDERS: ATTEND Pharmacist | DX: I48.92 Unspecified atrial flutter (principal) | CPT/HCPCS: 36416; 85610 ==

== ENCOUNTER 2021-02-27 09:50 | Outpatient (CLI) | payer MEDICARE, BC | END 2021-02-27 09:51 | disposition home or self-care (01) | LOC: LAB.S 09:50 | PROVIDERS: ATTEND Pharmacist | DX: I48.92 Unspecified atrial flutter (principal) | CPT/HCPCS: 36416; 85610 ==

== ENCOUNTER 2021-03-06 10:53 | Outpatient (CLI) | payer MEDICARE, BC | END 2021-03-06 10:54 | disposition home or self-care (01) | LOC: LAB.S 10:53 | PROVIDERS: ATTEND Pharmacist | DX: I48.92 Unspecified atrial flutter (principal) | CPT/HCPCS: 36416; 85610 ==

== ENCOUNTER 2021-03-18 12:26 | Outpatient (CLI) | payer MEDICARE, BC | END 2021-03-18 12:27 | disposition home or self-care (01) | LOC: LAB.S 12:26 | PROVIDERS: ATTEND Pharmacist | DX: I48.92 Unspecified atrial flutter (principal) | CPT/HCPCS: 36416; 85610 ==

== ENCOUNTER 2021-04-11 12:05 | Outpatient (CLI) | payer MEDICARE, BC | END 2021-04-11 12:06 | disposition home or self-care (01) | LOC: LAB.S 12:05 | PROVIDERS: ATTEND Pharmacist | DX: I48.92 Unspecified atrial flutter (principal) | CPT/HCPCS: 36416; 85610 ==

== ENCOUNTER 2021-05-20 11:31 | Outpatient (CLI) | payer MEDICARE, BC | END 2021-05-20 11:32 | disposition home or self-care (01) | LOC: LAB.S 11:31 | PROVIDERS: ATTEND Pharmacist | DX: I48.92 Unspecified atrial flutter (principal) | CPT/HCPCS: 36416; 85610 ==

== ENCOUNTER 2021-06-09 16:04 | Outpatient (CLI) | payer MEDICARE, BC | END 2021-06-09 16:05 | disposition home or self-care (01) | LOC: LAB.S 16:04 | PROVIDERS: ATTEND Pharmacist | DX: I48.92 Unspecified atrial flutter (principal) | CPT/HCPCS: 36416; 85610 ==

== ENCOUNTER 2021-06-15 15:12 | Outpatient (CLI) | payer MEDICARE, BC | END 2021-06-15 15:13 | disposition home or self-care (01) | LOC: LAB.S 15:12 | PROVIDERS: ATTEND Pharmacist | DX: I48.92 Unspecified atrial flutter (principal) | CPT/HCPCS: 36416; 85610 ==

== ENCOUNTER 2021-06-30 15:55 | Outpatient (CLI) | payer MEDICARE, BC | END 2021-06-30 15:56 | disposition home or self-care (01) | LOC: LAB.S 15:55 | PROVIDERS: ATTEND Pharmacist | DX: I48.92 Unspecified atrial flutter (principal) | CPT/HCPCS: 36416; 85610 ==

== ENCOUNTER 2021-07-06 11:09 | Outpatient (CLI) | payer MEDICARE, BC | END 2021-07-06 11:10 | disposition home or self-care (01) | LOC: LAB.S 11:09 | PROVIDERS: ATTEND Pharmacist | DX: I48.92 Unspecified atrial flutter (principal) | CPT/HCPCS: 36416; 85610 ==

== ENCOUNTER 2021-07-07 17:49 | Emergency (ER) | payer MEDICARE, BC ==
[2021-07-07 18:43] LABS: BASOPHILS # (AUTO) 0.1 10^3/uL (0.0-0.1); BASOPHILS % (AUTO) 1.2 %; EOSINOPHILS # (AUTO) 0.4 10^3/uL (0.0-0.7); EOSINOPHILS % (AUTO) 5.9 %; HCT - HEMATOCRIT 36.6 % (37.0-47.0); HGB - HEMOGLOBIN 11.6 g/dL (12.0-16.0); LYMPHOCYTES # (AUTO) 1.3 10^3/uL (1.5-3.5); LYMPHOCYTES % (AUTO) 17.1 %; MEAN CORPUSCULAR HEMOGLOBIN 30.2 pg (27.0-31.0); MEAN CORPUSCULAR HGB CONC 31.7 g/dL (32.0-36.0); MEAN CORPUSCULAR VOLUME 95.3 fL (81.0-99.0); MEAN PLATELET VOLUME 9.7 fL (7.9-10.8); MONOCYTES # (AUTO) 0.5 10^3/uL (0.0-1.0); MONOCYTES % (AUTO) 6.6 %; NEUTROPHILS % (AUTO) 68.8 %; PLT - PLATELET COUNT 260 10^3/uL (130-450); RED BLOOD COUNT 3.84 10^6/uL (4.20-5.40); RED CELL DISTRIBUTION WIDTH 16.1 % (12.0-15.0); WHITE BLOOD COUNT 7.3 x10^3/uL (4.8-10.8)
[2021-07-07 18:48] LABS: PT - PROTHROMBIN TIME 87.7 secs (9.9-12.6)
[2021-07-07 18:57] LABS: INR 7.9 (0.8-1.2)
--- NOTE | 2021-07-07 19:03 | ED Physician Documentation ---
History of Present Illness - Stated complaint Stated Complaint: BILAT LEG PX - Chief complaint Chief Complaint: General - Additonal information Additional information: 75 year old female presents to the ED for evaluation of worsening wounds to the right medial thigh. Pt has a hx of ESRD, atrial fibrillation and is s/p pacemaker in Sep 2020. Pt was transitioned from eliquis to coumadin in November of 2020 due to exhorbitant cost. In March the patient noted that her right medial thigh had developed an area of warmth and induration which got progressively more painful. She was initially seen by her primary care provider who recommended that she placed topical ointments on it. However over the last 2-1/2 months she has developed an area of necrosis with some surrounding ecchymosis and mottling. She saw her primary care provider last week for this and was started on Bactrim. This has not improved the appearance of the wound. In addition to that she has developed some areas of firm induration on the left medial thigh, right lower calf and lower mid abdomen. Review of Systems Constitutional: denies: Fever, Chills Eyes: reports: Reviewed and negative Ears: reports: Reviewed and negative Nose: reports: Reviewed and negative Throat: reports: Reviewed and negative Cardiac: reports: Reviewed and negative Respiratory: reports: Reviewed and negative GI: reports: Reviewed and negative : reports: Reviewed and negative Skin: reports: Lesions. denies: Rash, Abrasion (s), Laceration (s), Bite / sting Musculoskeletal: reports: Reviewed and negative PD PAST MEDICAL HISTORY - Past Medical History Past Medical History: Yes Cardiovascular: Atrial fibrillation, Other Neuro: None Endocrine/Autoimmune: None GI: None HEENT: None Derm: None - Past Surgical History Past Surgical History: Yes General: Cholecystectomy, Appendectomy Cardiovascular: Pacemaker - Present Medications Home Medications: Ambulatory Orders Medication Instructions Recorded Confirmed Calcium Carbonate [Tums (Calcium 750 mg PO TID PRN 10/10/20 10/10/20 Carbonate 500mg)] Cholecalciferol [Vitamin D3] 25 mcg PO DAILY 10/10/20 10/10/20 Famotidine [Pepcid AC] 10 mg PO DAILY PRN 10/10/20 10/10/20 Ferrous Sulfate 325 mg PO DAILY 10/10/20 10/10/20 Gabapentin [Neurontin] 100 mg PO HS 10/10/20 10/10/20 Loratadine [Claritin] 10 mg PO DAILY 10/10/20 10/10/20 Mometasone Furoate [Nasonex] 2 spray IN DAILY 10/10/20 10/10/20 Multivit-Mins No.11/Folic Acid 5 mg PO DAILY 10/10/20 10/10/20 [Dialyvite 5000 Tablet] Warfarin [Coumadin] 2.5 mg PO DAILY 10/10/20 10/10/20 Warfarin [Coumadin] 2.5 mg PO DAILY 10/10/20 10/10/20 allopurinoL [Zyloprim] 150 mg PO DAILY 10/10/20 10/10/20 traMADol [Ultram] 50 mg PO BID 10/10/20 10/10/20 Metoprolol Tartrate [Lopressor] 25 mg PO BID #60 tablet 12/29/20 Phytonadione [Mephyton] 5 mg PO DAILY #30 tablet 07/07/21 - Allergies Allergies/Adverse Reactions: Allergies Allergy/AdvReac Type Severity Reaction Status Date / Time codeine Allergy Hives Verified 07/07/21 18:26 Penicillins Allergy Hives Verified 07/07/21 18:26 - Social History Does the pt smoke?: No Smoking Status: Never smoker Does the pt drink ETOH?: No Does the pt have substance abuse?: No - Immunizations Immunizations are current?: Yes - POLST Patient has POLST: No PD ED PE EXPANDED - General General: Alert, No acute distress, Well developed/nourished - Cardiac Cardiac: Irregularly irregular, Murmur Present, Radial strong equal, Pedal strong equal, Cap refill < 2 sec - Respiratory Respiratory: Clear to ausultation agustin. No: Distress, Labored - Abdomen Abdomen: Normal Bowel sounds. No: Tender to palpation - Derm Derm: Normal color, Warm and dry, Other (right medial thigh with firl thick black eschar measuring 4X6 cm with irregular borders and mild mottling and erythema surrounding wound) - Extremities Extremities: Normal, Tenderness - Neuro Neuro: Alert and Oriented X 3, CNII-XII intact - GCS Eye Opening: Spontaneous Motor: Obeys Commands Verbal: Oriented Total: 15 Results - Vitals Vitals: Vital Signs - 24 hr 07/07/21 07/07/21 07/07/21 18:22 18:44 19:15 Temperature 36.7 C 36.9 C Heart Rate 104 H 99 101 H Respiratory 20 19 15 Rate Blood Pressure 120/75 120/75 120/55 L O2 Saturation 100 99 100 07/07/21 20:01 Temperature Heart Rate 102 H Respiratory 18 Rate Blood Pressure 106/49 L O2 Saturation 100 Oxygen O2 Source Room air - EKG (time done) 1832 Rate: Rate (enter#) (113) Rhythm: Atrial fibrillation Colon: Other (right axis) Intervals: Prolonged QT QRS: Normal Ischemia: Non specific changes Compare to prior EKG: Old EKG unavailable - Labs Labs: Laboratory Tests 07/07/21 07/07/21 07/07/21 18:38 18:38 18:38 WBC 7.3 RBC 3.84 L Hgb 11.6 L Hct 36.6 L MCV 95.3 MCH 30.2 MCHC 31.7 L RDW 16.1 H Plt Count 260 MPV 9.7 Neut # (Auto) 5.0 Lymph # (Auto) 1.3 L [place] # (Auto) 0.5 Eos # (Auto) 0.4 Baso # (Auto) 0.1 Absolute Nucleated RBC 0.00 Nucleated RBC % 0.0 ESR PT 87.7 H INR 7.9 H* Sodium 138 Potassium 4.2 Chloride 96 L Carbon Dioxide 29 Anion Gap 13.0 BUN 20 Creatinine 3.9 H Estimated GFR (MDRD) 11 L Glucose 141 H Lactic Acid Calcium 9.0 Phosphorus 3.3 Total Bilirubin 0.8 AST 26 ALT 18 Alkaline Phosphatase 88 C-Reactive Protein 6.8 H Total Protein 7.0 Albumin 3.5 Globulin 3.5 Albumin/Globulin Ratio 1.0 Lipase 33 PTH Intact 07/07/21 07/07/21 07/07/21 18:38 18:38 18:38 WBC RBC Hgb Hct MCV MCH MCHC RDW Plt Count MPV Neut # (Auto) Lymph # (Auto) [place] # (Auto) Eos # (Auto) Baso # (Auto) Absolute Nucleated RBC Nucleated RBC % ESR 35 H PT INR Sodium Potassium Chloride Carbon Dioxide Anion Gap BUN Creatinine Estimated GFR (MDRD) Glucose Lactic Acid 1.8 Calcium Phosphorus Total Bilirubin AST ALT Alkaline Phosphatase C-Reactive Protein Total Protein Albumin Globulin Albumin/Globulin Ratio Lipase PTH Intact 111 H - Rads (name of study) CXR Radiology: Final report received (Mild cardiomegaly and bilateral interstitial prominence suspicious for mild congestive heart failure) PD MEDICAL DECISION MAKING - ED course Complexity details: reviewed results, re-evaluated patient, d/w patient, d/w data virtualization consultant (Dr. Peters) ED course: 75-year-old female who has a history of end-stage renal disease on 3 times weekly dialysis as well as being on Coumadin secondary to history of atrial fib presents emergency department for evaluation of what is now chronic wound on the right medial thigh that began in March. She reports that initially began as a subtle area of redness followed by ecchymosis but now has an irregular area of thick black appearing necrosis. She did see her primary care provider for evaluation of this wound last week and was started on Bactrim. Subsequently she has developed a fairly elevated INR of 7.9 today. Last dose of Coumadin was Monday the . Evaluation of her wounds however is more concerning for calciphylaxis versus warfarin induced necrosis. Screening labs today do show a normal calcium and phosphorus though she does have a mildly elevated intact PTH. However given recent dialysis today it is not unexpected that she would have normalized calcium and phosphorus. I did discuss this case with the on-call foundry metallurgist Dr. Peters. She is in agreement that the skin changes I am describing are most likely calciphylaxis. She would like the patient started on 5 mg of vitamin K daily. Vitamin K defic iency can worsen calciphylaxis. This is not to treat her elevated INR. She will plan to initiate the patient on sodium thiosulfate at her next dialysis session on Monday. I have discussed the clinical findings with the patient and are concerned that she is developing calciphylaxis. We discussed that this is a poor indicator of long-term disease progression. She will follow up with a primary care provider and request referral for a wound therapist. Clinically her wounds do not appear grossly infected thus further antibiotics were stopped today. The discussion on whether or not to resume anticoagulation will be made in conjunction with the patient's milking system installer and her primary care doctor. She was advised to abstain from any further Coumadin administration at this time. A prescription was levied for vitamin K. Emergent return precautions were discussed. Departure - Departure Disposition: 01 Home, Self Care Clinical Impression: Calciphylaxis, ESRD (end stage renal disease) on dialysis, Elevated INR Condition: Stable Record reviewed to determine appropriate education?: Yes Follow-Up: AMPARO SALCEDO MD [Primary Care Provider] - Prescriptions: Phytonadione [Mephyton] 5 mg PO DAILY #30 tablet Comments: Alejandrina frausto were seen today for chronic skin changes on your right thigh and now left thigh and abdomen. This is most likely due to a condition called calciphylaxis. This is an abnormal buildup of calcium in the blood vessels that can cause clots and necrosis or dying skin. Do not take the warfarin or Coumadin any more. You will need to discuss with your foundry metallurgist and your primary care doctor and/or milking system installer if another anticoagulant is appropriate for you. Please fill the prescription for the vitamin K and begin taking every day. The vitamin K is being given to you because calciphylaxis can be worsened by a vitamin K deficiency. It is not being prescribed for your elevated INR. Please discuss this ED visit with Dr. Salcedo. You should receive a referral to wound therapy. Do not miss the follow-up appointment on July 22 with a vascular surgeon that you are already scheduled for.
[2021-07-07 19:04] LABS: ALBUMIN 3.5 g/dL (3.2-5.5); BILIRUBIN,TOTAL 0.8 mg/dL (0.2-1.0); CREATININE 3.9 mg/dL (0.4-1.0); CRP - C-REACTIVE PROTEIN 6.8 mg/dL (0-1.0); PHOSPHORUS 3.3 mg/dL (2.5-4.6); POTASSIUM 4.2 mmol/L (3.5-5.0)
--- NOTE | 2021-07-07 19:28 | XRAY Report ---
PROCEDURE: Chest 1 View X-Ray INDICATIONS: chest pain TECHNIQUE: One view of the chest was acquired. COMPARISON: Chest x-ray one view, 12/29/2020. FINDINGS: Surgical changes and devices: None. Lungs and pleura: Mild bilateral interstitial prominence. No pleural effusions or pneumothorax. Edward gs are clear. Mediastinum: Mediastinal contours appear normal. Heart size is mildly increased. Bones and chest wall: No suspicious bony lesions. Overlying soft tissues appear unremarkable. IMPRESSION: Mild cardiomegaly and bilateral interstitial prominence suspicious for mild CHF. Reviewed by: Andrew Coy MD on 07/07/2021 7:26 PM PDT Approved by: Andrew Coy MD on 07/07/2021 7:26 PM PDT Station ID: [id number]
[2021-07-07 20:03] VITALS: BP 106/49
== END 2021-07-07 20:45 | disposition home or self-care (01) ==
LOC: ED 17:49
DX: E83.59 Other disorders of calcium metabolism (principal); N18.6 End stage renal disease; Z99.2 Dependence on renal dialysis; I51.7 Cardiomegaly; I48.91 Unspecified atrial fibrillation; Z79.01 Long term (current) use of anticoagulants; R79.1 Abnormal coagulation profile
CPT/HCPCS: 36415; 80053; 83605; 83690; 83970; 84100; 85025; 85610; 85651; 86140; 93005; 99283; 99284

== ENCOUNTER 2021-07-17 14:06 | Outpatient (CLI) | payer MEDICARE, BC | END 2021-07-17 14:07 | disposition home or self-care (01) | LOC: LAB.S 14:06 | PROVIDERS: ATTEND Pharmacist | DX: I48.92 Unspecified atrial flutter (principal) | CPT/HCPCS: 36416; 85610 ==

== ENCOUNTER 2021-07-21 10:22 | Outpatient (CLI) | payer MEDICARE, BC | END 2021-07-21 10:23 | disposition E | LOC: EMS 10:22 | DX: I46.9 Cardiac arrest, cause unspecified (principal) | CPT/HCPCS: A0425; A0429 ==